=== PATIENT | female | born 1990 | race Caucasian/White ===

== ENCOUNTER 2018-09-06 19:04 | Emergency (ER) | payer OTHER ==
--- OUTSIDE RECORDS SUMMARY | 2018-09-06 19:25 | XMS REPORT | Continuity of Care Document ---
:1990 External Reference #:[id number] Author Name Cammie Taveras NP Address [address] [place] [address] Care Team Providers Name Role Phone Trinity Martínez M.D. Care Team Information Cafeteria Clerk Unavailable Trinity Martínez M.D. Primary Care Physician Unavailable Payers Date Identification Numbers Payment Provider Subscriber Effective: 2017 Policy Number: [id number] [employer] Number: [id number] [address] PayID: [id number] [place] [address] Advance Directives Description No Information Available Problems Description No Information Family History Date Family Member(s) Observation Comments Father Prostate Cancer Mother due to Lupus, Ra () - from overdose of medication First Son Asthma First Brother Anxiety First Brother Depression Paternal Grandfather due to Cancer, Brain () Paternal Grandfather due to Prostate Cancer () Paternal Grandmother Hypertension Maternal Grandmother due to Multple () - Lupus, RA autoimmune diseases Social History Type Date Description Comments Sex Unknown Education Highest Level Completed, Master's Degree Lives With Spouse Lives With Sons Diet Healthy, Well Balanced Sleep Reports normal sleep activity Occupation Teacher Tobacco Use Start: Unknown Never Smoked Cigarettes ETOH Use Rare Tobacco Use Start: Unknown Patient has never smoked Smoking Status Reviewed: 01/15/18 Patient has never smoked Exercise Type/Frequency Exercises regularly Allergies, Adverse Reactions, Alerts Active Allergies Reaction Severity Comments Date Cefaclor hives/difficulty breathing 01/12/2018 Sulfa hives/difficulty breathing 01/12/2018 Seasonal 01/12/2018 Beef-derived Products 01/12/2018 Cipro hives 08/15/2018 Medications Active Medications SIG Qnty Indications Ordering Date Provider Sertraline HCL 1 by mouth every 30tabs F41.9 Cammie Pastrana 06/19/2018 50mg day DA Taveras Tablets Physical Therapy please diagnose M54.9 Cammie Zeina 06/19/2018 and treat for DA Taveras upper back pain Ventolin HFA 2 puffs qd-qid 18units J45.998 Marcella Steele, 01/12/2018 [employer] WORKER 108(90Base) mcg/Act Aerosol Multivitamin Adults 1 po qd Unknown Tablets History Medications Brooke take one pill 1pack Barbara Ang 01/28/2018 - 0.35mg daily at the same DA Granda 06/19/2018 Tablets time each day as directed Cipro 1 by mouth twice 14tabs N39.0 Floyd Donahue 01/12/2018 - 500mg Tablets a day for 7 days MD Dameon 06/19/2018 Loratadine 1 by mouth every Unknown - 10mg day 08/14/2018 Tablets Medications Administered in Office Medication SIG Qnty Indications Ordering Provider Date TB Intradermal Test Barbara Granda NP 01/15/2018 Injection Immunizations CPT Code Status Date Vaccine Lot # [id number] Given 01/15/2018 Influenza Vac, Quadrivalent, Slit Virus, Im [id number] Vital Signs Date Vital Result Comment 08/15/2018 3:16pm BP Systolic 98 mmHg BP Diastolic 60 mmHg Heart Rate 90 /min Body Temperature 98.6 F Respiratory Rate 16 /min Weight 151.25 lb 06/19/2018 1:01pm BP Systolic 120 mmHg BP Diastolic 78 mmHg Heart Rate 72 /min Body Temperature 98.1 F Respiratory Rate 16 /min Weight 153.00 lb 01/15/2018 4:17pm BP Systolic 112 mmHg BP Diastolic 70 mmHg Heart Rate 68 /min Body Temperature 98.7 F Respiratory Rate 17 /min Height 64.75 inches 5'4.75" Weight 156.00 lb BMI (Body Mass Index) 26.2 kg/m2 01/12/2018 9:13am BP Systolic 104 mmHg BP Diastolic 60 mmHg Heart Rate 84 /min Body Temperature 98.2 F Respiratory Rate 16 /min Height 64.75 inches 5'4.75" Weight 156.50 lb BMI (Body Mass Index) 26.2 kg/m2 Results Test Date Facility Test Result H/L Range Note Laboratory test 06/19/2018 [facility]) Vitamin B-12 332 pg/mL 230-1050 finding CBC Electronic 06/19/2018 [facility]) WBC 5.5 x10^3/UL 4.0-10.0 Fma RBC 4.49 x10^6/UL 3.93-6.00 HGB 13.0 g/dL 12.0-17.0 HCT 40 % 35-50 MCV 88.2 fL 80.0-95.0 MCH 29.0 pg 25.6-32.2 MCHC 32.8 g/dL 32.2-36.0 RDW-CV 12.6 % 11.6-14.4 PLT 253 x10^3/UL 163-400 MPV 10.1 fL 9.4-12.4 Daysi# 2.83 x10^3/UL 1.56-6.13 Lymph# 1.87 x10^3/UL 1.18-3.74 [place]# 0.52 x10^3/UL 0.24-0.82 Eos # 0.2 x10^3/UL 0.0-0.5 Baso # 0.03 x10^3/UL 0.01-0.08 Daysi% 52.0 % 34.0-70.0 Lymph % 34.2 % 20.0-52.0 [place]% 9.5 % 5.0-12.0 Eos% 3.8 % 0.7-7.0 Baso% 0.5 % 0.1-1.2 Comprehensive Metabolic 06/19/2018 [facility]) Sodium 141 mEq/L 134-149 Prof Potassium 4.5 mEq/L 3.6-5.5 Chloride 102 mEq/L 94-112 Carbon Dioxide 23 mEq/L 21-32 Glucose 94 mg/dL 70-105 BUN 6 mg/dL 6-26 Creatinine 0.7 mg/dL 0.6-1.4 BUN/Creat Ratio 8.6 CALC 8.0-36.0 Calcium 9.8 mg/dL 8.6-10.2 Total Protein 7.8 g/dL 6.4-8.3 Albumin 5.4 g/dL 3.8-5.5 Globulin 2.4 g/dL 2.0-4.8 A/G Ratio 2.3 CALC 0.6-2.3 Alk. Phosphatase 58 U/L 30-110 Alt (SGPT) 27 U/L 7-35 Ast (Sgot) 19 U/L 5-34 Total Bilirubin 0.3 mg/dL 0.2-1.3 GFR Non- >60 ml/min/1.73m^ >=60 GFR >60 ml/min/1.73m^ >=60 Laboratory test finding 06/19/2018 [facility](fma) Ferritin 10 ng/mL 6-115 TSH 1.49 mIU/L 0.50-6.00 Ua - Micro (Fma) 01/12/2018 [facility] Appearance slightly cloudy (607)- - Color yellow Glucose, Urine (Fma/CMC/CTX) neg Bilirubin neg Ketones neg SP Grav 1.020 Blood mod # PH 6.5 Protein neg Urobil 0.2 Nitrite neg Leukocytes (Fma/CMC/Centrex) trace # Hyaline - /Lpf Granular - /Lpf WBC (Fma,Centrex) 10-20 # RBC tntc # Mucus - /Lpf Epith few /Lpf # Bacteria 1+ /Hpf # Amorphous - /Lpf Crystals, Fluid (Fma/CMC/CTX) - Procedures Date Code Description Status 06/19/2018 02028 Brief Emotional/Behav Assessment W/ Scoring Doc Per Completed Standard Inst Encounters Type Date Location Provider Dx Diagnosis Office Visit 06/19/2018 [facility] Office Cammie Pastrana F41.9 Anxiety disorder, 1:00p DA Taveras unspecified M54.9 Dorsalgia, unspecified R20.2 Paresthesia of skin Office Visit 01/15/2018 4:15p [facility] Office Barbara Ang N92.6 Irregular Jesus Alberto, DA menstruation, unspecified Z00.01 Encounter for general adult medical exam w abnormal findings Z11.1 Encounter for screening for respiratory tuberculosis Z23 Encounter for immunization Office Visit 01/12/2018 9:15a Main Office CHERRI Stephens N39.0 Urinary tract infection, site not specified J45.998 Other asthma Plan of Treatment 08/15/2018 - Cammie Taveras NPF41.9 Anxiety disorder, unspecifiedComments: Can start now.R20.2 Paresthesia of skinComments:Continue with the iron zlvlktxtaerxbpxT29.9 Iron deficiency anemia, zjbtroitqndJ43.0 Excessive and frequent menstruation with regular cycleNew Labs:Ferritin (Fma/CMC/Centrex), Ordered: 08/15/18FSH, LH & Estradiol, Ordered: 08/15/18Von Willebrand Screen , Ordered: 08/15/18Comments:Follow up with Make Up Girl.AllComments:1. Patient has been queried about patient's goals/preferences and functional/lifestyle goals at relevant visits. If relevant, describe: Has been discussed, noted above2. Treatment goals as explainedto the patient: see above3. Are there barriers to meeting treatment goals? Yes If Yes, please describe: Barriers include possible insurance limits, disease process, and difficulty with lifestyle changes4. Self-Management goals as described to the patient: Yes, see above As always, we strongly encourage a healthy diet and making physical activity a part of your every day life. If you have questions about how or where to start, please contact the office.
[2018-09-06] MEDS ORDERED: NS 0.9% 1000 ML** 1,000 ML IV ONE (19:36)
[2018-09-06 20:00] LABS: ABS Eosinophils 0.1 10^3/ul (0-0.6); ABS Lymphocytes 2.3 10^3/ul (1.0-4.8); ABS Monocytes 0.6 10^3/ul (0-0.8); ABS Neutrophils 3.8 10^3/ul (1.5-7.7); Hematocrit 38 % (35-47); Hemoglobin 12.8 g/dL (12.0-16.0); Lymphocyte % 33.3 %; Mean Corpuscular HGB Conc 34 g/dL (31-36); Mean Corpuscular Hemoglobin 30 pg (27-31); Mean Corpuscular Volume 88 fL (80-97); Mean Platelet Volume 8.6 fL (7.4-10.4); Platelet Count 241 10^3/uL (150-450); Red Blood Count 4.32 10^6 /uL (3.70-4.87); Red Cell Distribution Width 14 % (10-15); White Blood Count 6.8 10^3/uL (3.5-10.8)
[2018-09-06 20:17] LABS: ALT 18 U/L (7-52); AST 20 U/L (13-39); Albumin 4.5 g/dL (3.2-5.2); Albumin/Globulin Ratio 1.9 (1-3); Alkaline Phosphatase 55 U/L (34-104); Anion Gap 8 mmol/L (2-11); BUN/Creatinine Ratio 12.2 (8-20); Blood Urea Nitrogen 10 mg/dL (6-24); CO2 Carbon Dioxide 26 mmol/L (22-32); Calcium 9.6 mg/dL (8.6-10.3); Chloride 103 mmol/L (101-111); EGFR African American 100.4 (>60); Globulin 2.4 g/dL (2-4); Glucose 95 mg/dL (70-100); Sodium 137 mmol/L (135-145); Total Protein 6.9 g/dL (6.4-8.9)
[2018-09-06 20:22] LABS: HCG Pregnancy < 0.60 mIU/mL
--- NOTE | 2018-09-06 20:37 | ED ---
GI/ HPI - HPI Summary HPI Summary: 27-year-old female presents with diffuse abdominal pain for the past 2 days. She states that the pain goes across her abdomen. Nothing helps her symptoms. She admits to nausea but no vomiting or diarrhea. She had a normal bowel movement today with no change with the pain with such. She states the pain comes and goes. States she she believes she has endometriosis but she has never had pain this severe before. She denies any vaginal bleeding. She states she sometimes has this pain when she has her period but is not currently having her period. No abnormal vaginal discharge. No cough. No chest pain. Tried some ibuprofen with some relief. - History of Current Complaint Chief Complaint: EDAbdPain Time Seen by Provider: 09/06/18 20:07 Stated Complaint: EXTREME ABD PAIN PER PT Pain Intensity: 8 - Allergy/Home Medications Allergies/Adverse Reactions: Allergies Allergy/AdvReac Type Severity Reaction Status Date / Time cefaclor [From Ceclor] Allergy Hives Verified 09/06/18 19:23 ciprofloxacin Allergy Hives Verified 09/06/18 19:23 Sulfa (Sulfonamide Allergy Hives Verified 09/06/18 19:23 Antibiotics) Home Medications: Home Medications NK [No Home Medications Reported] 09/06/18 [History Confirmed 09/06/18] PMH/Surg Hx/FS Hx/Imm Hx Endocrine/Hematology History: Denies: Hx Anticoagulant Therapy Respiratory History: Denies: Hx Asthma Infectious Disease History: No Infectious Disease History: Denies: Traveled Outside the [place] in Last 30 Days - Family History Known Family History: Positive: Non-Contributory - Social History Alcohol Use: None Substance Use Type: Reports: None Smoking Status (MU): Never Smoked Tobacco Review of Systems Negative: Fever Negative: Chest Pain Negative: Shortness Of Breath Positive: Abdominal Pain. Negative: Vomiting, Diarrhea, Nausea All Other Systems Reviewed And Are Negative: Yes Physical Exam Triage Information Reviewed: Yes Vital Signs On Initial Exam: Initial Vitals Temp Pulse Resp BP Pulse Ox 97.8 F 80 16 136/79 99 09/06/18 19:15 09/06/18 19:15 09/06/18 19:15 09/06/18 19:15 09/06/18 19:15 Vital Signs Reviewed: Yes Appearance: Positive: Well-Appearing Skin: Positive: Warm, Dry Head/Face: Positive: Normal Head/Face Inspection Eyes: Positive: Normal, Conjunctiva Clear ENT: Positive: Pharynx normal Respiratory/Lung Sounds: Positive: Clear to Auscultation, Breath Sounds Present Cardiovascular: Positive: Normal, RRR Abdomen Description: Positive: Soft, Other: - mild diffuse abd pain Bowel Sounds: Positive: Present Musculoskeletal: Positive: Normal Neurological: Positive: Normal Psychiatric: Positive: Normal Diagnostics - Vital Signs Vital Signs Temp Pulse Resp BP Pulse Ox 09/06/18 20:03 78 98 09/06/18 20:02 75 122/82 98 09/06/18 19:15 97.8 F 80 16 136/79 99 - Laboratory Lab Results: Lab Results 09/06/18 09/06/18 09/06/18 Range/Units 19:49 19:49 19:49 WBC 6.8 (3.5-10.8) 10^3/uL RBC 4.32 (3.70-4.87) 10^6 /uL Hgb 12.8 (12.0-16.0) g/dL Hct 38 (35-47) % MCV 88 (80-97) fL MCH 30 (27-31) pg MCHC 34 (31-36) g/dL RDW 14 (10-15) % Plt Count 241 (150-450) 10^3/uL MPV 8.6 (7.4-10.4) fL Neut % (Auto) 55.9 % Lymph % (Auto) 33.3 % [place] % (Auto) 9.2 % Eos % (Auto) 1.0 % Baso % (Auto) 0.6 % Absolute Neuts (auto) 3.8 (1.5-7.7) 10^3/ul Absolute Lymphs (auto) 2.3 (1.0-4.8) 10^3/ul Absolute Monos (auto) 0.6 (0-0.8) 10^3/ul Absolute Eos (auto) 0.1 (0-0.6) 10^3/ul Absolute Basos (auto) 0.0 (0-0.2) 10^3/ul Absolute Nucleated RBC 0.0 10^3/ul Nucleated RBC % 0.0 Sodium 137 (135-145) mmol/L Potassium 4.0 (3.5-5.0) mmol/L Chloride 103 (101-111) mmol/L Carbon Dioxide 26 (22-32) mmol/L Anion Gap 8 (2-11) mmol/L BUN 10 (6-24) mg/dL Creatinine 0.82 (0.51-0.95) mg/dL Est GFR ( Amer) 100.4 (>60) Est GFR (Non-Af Amer) 83.0 (>60) BUN/Creatinine Ratio 12.2 (8-20) Glucose 95 (70-100) mg/dL Lactic Acid 0.6 (0.5-2.0) mmol/L Calcium 9.6 (8.6-10.3) mg/dL Total Bilirubin 0.30 (0.2-1.0) mg/dL AST 20 (13-39) U/L ALT 18 (7-52) U/L Alkaline Phosphatase 55 (34-104) U/L C-Reactive Protein 1.70 (<8.01) mg/L Total Protein 6.9 (6.4-8.9) g/dL Albumin 4.5 (3.2-5.2) g/dL Globulin 2.4 (2-4) g/dL Albumin/Globulin Ratio 1.9 (1-3) Lipase 17 (11.0-82.0) U/L Beta HCG, Quant < 0.60 mIU/mL Result Diagrams: 09/06/18 19:49 09/06/18 19:49 Lab Statement: Any lab studies that have been ordered have been reviewed, and results considered in the medical decision making process. - CT abd CT Interpretation Completed By: Radiologist Summary of CT Findings: IMPRESSION: 1. No acute findings. No calcified gallstones. 2. Trace free fluid in the pelvis. Re-Evaluation - Re-Evaluation First Eval Re-Evaluation Time: 21:05 Comment: patient still comfortable, explained results GIGU Course/Dx - Course Course Of Treatment: 27-year-old female presents with diffuse abdominal pain for the past 2 days. She states that the pain goes across her abdomen. Nothing helps her symptoms. She admits to nausea but no vomiting or diarrhea. She had a normal bowel movement today with no change with the pain with such. She states the pain comes and goes. States she she believes she has endometriosis but she has never had pain this severe before. She denies any vaginal bleeding. She states she sometimes has this pain when she has her period but is not currently having her period. No abnormal vaginal discharge. No cough. No chest pain. Tried some ibuprofen with some relief. On exam has mild diffuse abdominal tenderness. wbc normal. CRP normal. CT shows no acute findings. Discussed cannot find a reason for pain today. Told to follow-up with printing manager and primary. Patient understands agrees plan. - Diagnoses Differential Diagnoses - Female: Constipation, Gastroenteritis (Viral), Urinary Tract Infection Provider Diagnoses: Abdominal pain Discharge - Sign-Out/Discharge Documenting (check all that apply): Patient Departure Patient Received Moderate/Deep Sedation with Procedure: No - Discharge Plan Condition: Good Disposition: HOME Patient Education Materials: Acute Abdominal Pain (ED) Referrals: Trinity Martínez MD [Primary Care Provider] - Additional Instructions: Your pain is not caused by any surgical emergency Drink small amounts of fluid as tolerated increase fiber Take ibuprofen or Tylenol for pain as needed every 6 hours Follow up with primary within 5 days Return to ED if develop any new or worsening symptoms - Billing Disposition and Condition Condition: GOOD Disposition: Home
[2018-09-06] MEDS ORDERED: Ketorolac INJ* 30 MG/ML 1 ML VIAL IV PUSH ONE (20:52)
[2018-09-06 21:29] VITALS: BP 116/77
== END 2018-09-06 21:28 | disposition home or self-care (01) ==
LOC: ED 19:04
DX: R10.9 Unspecified abdominal pain (principal); Z88.0 Allergy status to penicillin
CPT/HCPCS: 36415; 74176; 80053; 83605; 83690; 84702; 85025; 86140; 96374; 99283; J1885